=== PATIENT | female | born 1955 | race African-American/Black ===

== ENCOUNTER 2017-12-11 17:47 | Emergency (ER) | payer BC, MEDICARE ==
[~2017-12-11] VITALS: Ht 165.1 cm; Wt 85.0 kg
[~2017-12-11 17:47] MED LIST: IBUP-2028 PO
[2017-12-11] MEDS ORDERED: KETOROLAC 60MG/2ML VIAL IM ONE (21:30)
[2017-12-11 21:48] VITALS: BP 120/72
== END 2017-12-11 23:03 | disposition home or self-care (01) ==
LOC: ER 18:20
DX: R51 Headache (principal); F31.9 Bipolar disorder, unspecified; Z90.710 Acquired absence of both cervix and uterus; V49.3XXA Car occupant (driver) (passenger) injured in unspecified nontraffic accident, initial encounter; Y92.89 Other specified places as the place of occurrence of the external cause; Y99.8 Other external cause status; Y93.89 Activity, other specified
CPT/HCPCS: 96372; 99283; J1885

== ENCOUNTER 2018-08-31 09:27 | Emergency (ER) | payer BC, MEDICARE ==
[~2018-08-31] VITALS: Ht 172.7 cm; Wt 97.5 kg
[2018-08-31] MEDS ORDERED: HYDR-3511 PO (09:58)
[2018-08-31] MEDS ORDERED: IBUP-2029 PO (09:58)
[2018-08-31] MEDS ORDERED: TRANEXAMIC ACID 1,000 MG/10 ML IV ONE (11:00)
[2018-08-31] MEDS ORDERED: TRANEXAMIC ACID 1,000 MG/10 ML TP ONE (11:30)
[2018-08-31] MEDS ORDERED: TETANUS, DIPHTHERIA, PERTUSSIS VAC/PF 0.5ML (>7YR OLD) IM ONE (11:45)
[2018-08-31 12:14] VITALS: BP 124/77
== END 2018-08-31 12:19 | disposition home or self-care (01) ==
LOC: ER 10:31
DX: S61.310A Laceration without foreign body of right index finger with damage to nail, initial encounter (principal); F31.9 Bipolar disorder, unspecified; Z90.710 Acquired absence of both cervix and uterus; Z98.890 Other specified postprocedural states; W26.0XXA Contact with knife, initial encounter; Y93.G3 Activity, cooking and baking; Y92.010 Kitchen of single-family (private) house as the place of occurrence of the external cause
CPT/HCPCS: 90471; 90715; 99283

== ENCOUNTER 2023-01-06 19:52 | Emergency (ER) | payer MEDICARE ==
[~2023-01-06] VITALS: Ht 170.2 cm; Wt 73.0 kg
[~2023-01-06 19:52] MED LIST changes: +HYDR-3512 PO; -IBUP-2028 PO; +IBUP-2029 PO
[2023-01-06 19:55] VITALS: O2SAT 100
[2023-01-06] MEDS ORDERED: ONDANSETRON HCL 4MG/2ML INJ IV STA (20:21)
[2023-01-06] MEDS ORDERED: SODIUM CHLORIDE 0.9% 1,000 ML IV ONE (20:30)
[2023-01-06 21:32] LABS: BASOPHILS % 0.3 % (0.0-2.0); EOSINOPHILS % 0.4 % (0.0-5.0); HEMOGLOBIN. 12.8 g/dL (12.0-16.0); LYMPHOCYTES % 9.5 % (20.0-50.0); MEAN CORPUSCULAR HEMOGLOBIN 28.2 pg (28.0-32.0); MEAN CORPUSCULAR HGB CONC 31.3 g/dL (31.0-37.0); MEAN CORPUSCULAR VOLUME 90.3 fL (81.0-99.0); MEAN PLATELET VOLUME 9.5 fl (7.4-10.4); MONOCYTES % 8.3 % (2.0-8.0); NEUTROPHILS % 81.5 % (40.0-76.0); PLATELET 202 x1000/uL (130-400); RED BLOOD CELL COUNT 4.54 mill/uL (4.2-5.4); RED CELL DISTRIBUTION WIDTH 15.4 % (11.6-14.6); WHITE BLOOD COUNT 14.2 x1000/uL (4.5-11.0)
[2023-01-06 21:49] LABS: CHLORIDE 109 mEq/L (98-107); INDEX HEMOLYSI 3 (1-3); INDEX ICTERIC 1 (1-4); INDEX LIPEMIC 1 (1-3); POTASSIUM 3.5 mEq/L (3.5-5.1); SODIUM 138 mEq/L (136-145)
[2023-01-06 22:02] LABS: ALANINE AMINOTRANSFERASE 26 IU/L (13-61); ALBUMIN 3.8 g/dL (3.4-5.0); ASPARTATE AMINOTRANSFERASE 15 IU/L (15-37); BILIRUBIN TOTAL 0.5 mg/dL (0.1-1.0); CALCIUM 9.1 mg/dL (8.5-10.1); CARBON DIOXIDE 25 mEq/L (21-32); GLUCOSE 119 mg/dL (70-105); PROTEIN TOTAL 7.6 g/dL (6.0-8.3); TROPONIN I HIGH SENSITIVITY 8 ng/L (<54); UREA NITROGEN BLOOD 21 mg/dL (7-21)
[2023-01-06] MEDS ORDERED: ONDA4TAB11 PO (23:18)
[2023-01-07 00:40] VITALS: BP 110/86; PULSE 70; RESP 18; TEMP 98.3
== END 2023-01-07 00:40 | disposition home or self-care (01) ==
LOC: ER 20:57
DX: R11.2 Nausea with vomiting, unspecified (principal); R19.7 Diarrhea, unspecified; F31.9 Bipolar disorder, unspecified; E11.9 Type 2 diabetes mellitus without complications; I10 Essential (primary) hypertension; Z90.710 Acquired absence of both cervix and uterus
CPT/HCPCS: 99284; 96374; 71045; 96361; 80053; 83690; 85025; 84484; 36415; J2405; J7030

== ENCOUNTER 2023-01-14 15:19 | Emergency (ER) | payer MEDICARE ==
[~2023-01-14] VITALS: Ht 172.7 cm; Wt 94.0 kg
[~2023-01-14 15:19] MED LIST changes: +ONDA4TAB11 PO
[2023-01-14 15:26] VITALS: BP 113/62; PULSE 75; RESP 16; TEMP 98.9; O2SAT 97
[2023-01-14 15:58] LABS: BASOPHILS % 0.3 % (0.0-2.0); EOSINOPHILS % 0.4 % (0.0-5.0); HEMATOCRIT. 40.3 % (36.0-48.0); HEMOGLOBIN. 12.9 g/dL (12.0-16.0); MEAN CORPUSCULAR HEMOGLOBIN 28.4 pg (28.0-32.0); MEAN CORPUSCULAR VOLUME 88.7 fL (81.0-99.0); MEAN PLATELET VOLUME 9.1 fl (7.4-10.4); MONOCYTES % 4.3 % (2.0-8.0); PLATELET 185 x1000/uL (130-400); RED BLOOD CELL COUNT 4.54 mill/uL (4.2-5.4); RED CELL DISTRIBUTION WIDTH 15.6 % (11.6-14.6); WHITE BLOOD COUNT 11.6 x1000/uL (4.5-11.0)
[2023-01-14 16:11] LABS: CHLORIDE 110 mEq/L (98-107); INDEX HEMOLYSI 1 (1-3); INDEX ICTERIC 1 (1-4); INDEX LIPEMIC 1 (1-3); POTASSIUM 3.6 mEq/L (3.5-5.1); SODIUM 137 mEq/L (136-145)
[2023-01-14 16:17] LABS: ALANINE AMINOTRANSFERASE 22 IU/L (13-61); ALBUMIN 3.8 g/dL (3.4-5.0); ASPARTATE AMINOTRANSFERASE 10 IU/L (15-37); BILIRUBIN TOTAL 0.3 mg/dL (0.1-1.0); CALCIUM 9.2 mg/dL (8.5-10.1); CARBON DIOXIDE 21 mEq/L (21-32); CREATININE 0.9 mg/dL (0.6-1.3); GLUCOSE 132 mg/dL (70-105); PROTEIN TOTAL 7.6 g/dL (6.0-8.3); UREA NITROGEN BLOOD 17 mg/dL (7-21)
== END 2023-01-14 20:30 | disposition left against medical advice (07) ==
LOC: ER 15:19
DX: R11.0 Nausea (principal); Z53.21 Procedure and treatment not carried out due to patient leaving prior to being seen by health care provider
CPT/HCPCS: 36415; 80053; 82962; 85025; 93005; 99281

== ENCOUNTER 2025-04-16 09:27 | Inpatient (IN) | payer BC ==
[~2025-04-16] VITALS: Ht 172.7 cm; Wt 86.2 kg
[~2025-04-16 09:27] MED LIST changes: +IBUP-1455 PO; -IBUP-2029 PO; +ONDA-239 PO; -ONDA4TAB11 PO
[2025-04-16 09:36] VITALS: O2SAT 100
[2025-04-16] MEDS: SODIUM CHLORIDE 0.9% 500 ML IV ONE (10:03)
[2025-04-16] MEDS ORDERED: LOSA25TA26 MT (10:19)
[2025-04-16] MEDS ORDERED: MELA2.5T16 MT (10:19)
[2025-04-16 10:51] LABS: BASOPHILS % 0.4 % (0.0-2.0); EOSINOPHILS % 0.3 % (0.0-5.0); HEMATOCRIT. 31.6 % (36.0-48.0); HEMOGLOBIN. 9.7 g/dL (12.0-16.0); LYMPHOCYTES % 10.3 % (20.0-50.0); MEAN PLATELET VOLUME 8.4 fl (7.4-10.4); MONOCYTES % 4.5 % (2.0-8.0); NEUTROPHILS % 84.5 % (40.0-76.0); PLATELET 330 x1000/uL (130-400); RED BLOOD CELL COUNT 3.92 mill/uL (4.2-5.4); RED CELL DISTRIBUTION WIDTH 19.9 % (11.6-14.6)
[2025-04-16] MEDS ORDERED: COLC0.6C3 PO (10:56)
[2025-04-16] MEDS ORDERED: LINA145C PO (10:58)
[2025-04-16] MEDS ORDERED: FURO-151 MT (10:58)
[2025-04-16] MEDS ORDERED: HYDR-4009 PO (10:58)
[2025-04-16] MEDS ORDERED: GABA-1180 MT (10:58)
[2025-04-16 11:07] LABS: INR 1.1
[2025-04-16 11:16] LABS: CREATININE 0.8 mg/dL (0.6-1.0)
[2025-04-16 11:17] LABS: TROPONIN I HIGH SENSITIVITY 5 ng/L (3.0-34); UREA NITROGEN BLOOD 22 mg/dL (9-23)
[2025-04-16 11:18] LABS: ASPARTATE AMINOTRANSFERASE 17 IU/L (<34)
[2025-04-16 11:19] LABS: BILIRUBIN DIRECT 0.1 mg/dL (<=3.0); BILIRUBIN TOTAL 0.4 mg/dL (0.1-1.0); PROTEIN TOTAL 6.6 g/dL (6.0-8.3)
[2025-04-16] MEDS ORDERED: DIPHENHYDRAMINE 50MG/ML VIAL IV PRN (13:00)
[2025-04-16] MEDS: GABAPENTIN 300MG CAPSULE PO SCH (13:00)
[2025-04-16] MEDS ORDERED: IPRATROPIUM/ALBUTEROL 0.5-3(2.5)MG/3ML NEB HHN PRN (13:00)
[2025-04-16] MEDS ORDERED: ACETAMINOPHEN 325MG TABLET PO PRN (13:00)
[2025-04-16] MEDS ORDERED: ONDANSETRON HCL 4MG/2ML INJ IV PRN (13:00)
[2025-04-16] MEDS ORDERED: IBUPROFEN 600MG TABLET PO PRN (13:00)
[2025-04-16] MEDS ORDERED: DOCUSATE SODIUM 100MG CAPSULE PO PRN (13:00)
[2025-04-16 13:09] VITALS: BP 115/59; PULSE 76; RESP 20; TEMP 36.696
[2025-04-16] MEDS ORDERED: NALOXONE HCL 0.4MG/ML VIAL IV PRN (13:30)
[2025-04-16] MEDS ORDERED: CEFTRIAXONE 1GM/50ML 50 ML IV SCH (15:00)
[2025-04-16] MEDS ORDERED: LOPERAMIDE HCL 2MG CAPSULE PO PRN (15:00)
[2025-04-16] MEDS: ENOXAPARIN 40MG/0.4ML SYR SUBCUT SCH (15:21)
[2025-04-16] MEDS: POTASSIUM CHLORIDE 20MEQ TABLET SR PO SCH (15:21)
[2025-04-16] MEDS: METRONIDAZOLE 500 MG PREMIX 100 ML IV SCH (15:34)
[2025-04-16] MEDS: LEVOFLOXACIN 750MG PREMIX 150 ML IV NR (16:16)
[2025-04-16 19:47] LABS: CLARITY URINE CLOUDY (CLEAR); COLOR URINE YELLOW (YELLOW); GLUCOSE URINE NEGATIVE (NEGATIVE); KETONES URINE NEGATIVE (NEGATIVE); LEUKOCYTE ESTERASE URINE 2+ (NEGATIVE); NITRITE URINE NEGATIVE (NEGATIVE); OCCULT BLOOD URINE NEGATIVE (NEGATIVE); PH URINE 6.0 (4.5-8.0); PROTEIN URINE TRACE (NEGATIVE); SPECIFIC GRAVITY URINE 1.021 (1.005-1.030); UROBILINOGEN URINE 0.2 E.U./dL (0.2-1.0)
[2025-04-16 20:00] VITALS: BP 109/51; PULSE 76; RESP 18; TEMP 36.7; O2SAT 99
[2025-04-16 20:06] LABS: SQUAMOUS EPITHELIAL CELL URINE 3+ /lpf (RARE/1+)
[2025-04-16 20:07] LABS: BACTERIA URINE 3+; WBC URINE 25-50 /hpf (0-2)
[2025-04-16] MEDS: HYDROCODONE/ACETAMINOPHEN 10/325MG TABLET PO PRN (20:48)
[2025-04-17] VITALS: BP 98/53; PULSE 71; RESP 17; TEMP 36.6; O2SAT 99
[2025-04-17] MEDS: ZOLPIDEM TARTRATE 5MG TABLET PO PRN (00:18)
[2025-04-17 04:00] VITALS: BP 107/57; PULSE 77; RESP 18; TEMP 36.6; O2SAT 98
[2025-04-17 06:31] LABS: BASOPHILS % 0.5 % (0.0-2.0); EOSINOPHILS % 1.8 % (0.0-5.0); HEMATOCRIT. 27.6 % (36.0-48.0); HEMOGLOBIN. 8.8 g/dL (12.0-16.0); LYMPHOCYTES % 39.1 % (20.0-50.0); MEAN PLATELET VOLUME 8.6 fl (7.4-10.4); MONOCYTES % 8.6 % (2.0-8.0); NEUTROPHILS % 50.0 % (40.0-76.0); PLATELET 241 x1000/uL (130-400); RED BLOOD CELL COUNT 3.41 mill/uL (4.2-5.4); RED CELL DISTRIBUTION WIDTH 19.6 % (11.6-14.6)
[2025-04-17 06:36] LABS: CREATININE 0.7 mg/dL (0.6-1.0); UREA NITROGEN BLOOD 13 mg/dL (9-23)
[2025-04-17 08:00] VITALS: BP 105/59; PULSE 71; RESP 17; TEMP 36.6; O2SAT 100
[2025-04-17] MEDS: FUROSEMIDE 40MG TABLET PO SCH (09:13)
[2025-04-17] MEDS: LEVOFLOXACIN 500MG PREMIX 100 ML IV SCH (11:28)
[2025-04-17 12:00] VITALS: BP 104/55; PULSE 75; RESP 18; TEMP 36.9; O2SAT 96
[2025-04-17 16:00] VITALS: BP 113/61; PULSE 72; RESP 18; TEMP 36.7; O2SAT 97
[2025-04-17 20:00] VITALS: BP_SYST 106; BP_SYST 115; BP_DIAS 56; BP_DIAS 61; PULSE 75; RESP 18; TEMP 36.4; O2SAT 98
[2025-04-18] VITALS: BP 112/49; PULSE 74; RESP 18; TEMP 36.7; O2SAT 97
[2025-04-18 03:15] LABS: TROPONIN I HIGH SENSITIVITY 6 ng/L (3.0-34)
[2025-04-18 04:00] VITALS: BP 112/57; PULSE 75; RESP 20; TEMP 36.7; O2SAT 98
[2025-04-18 07:48] LABS: BASOPHILS % 0.3 % (0.0-2.0); EOSINOPHILS % 2.7 % (0.0-5.0); HEMATOCRIT. 27.1 % (36.0-48.0); HEMOGLOBIN. 8.7 g/dL (12.0-16.0); LYMPHOCYTES % 48.6 % (20.0-50.0); MEAN PLATELET VOLUME 8.4 fl (7.4-10.4); MONOCYTES % 7.0 % (2.0-8.0); NEUTROPHILS % 41.4 % (40.0-76.0); PLATELET 241 x1000/uL (130-400); RED BLOOD CELL COUNT 3.36 mill/uL (4.2-5.4); RED CELL DISTRIBUTION WIDTH 20.0 % (11.6-14.6)
[2025-04-18 08:00] VITALS: BP 121/60; PULSE 70; RESP 18; TEMP 37.2; O2SAT 100
[2025-04-18 08:14] LABS: CREATININE 0.8 mg/dL (0.6-1.0); UREA NITROGEN BLOOD 14 mg/dL (9-23)
[2025-04-18] MEDS ORDERED: LEVO-65 MT (12:37)
[2025-04-18] MEDS ORDERED: METR-167 MT (12:37)
[2025-04-18] MEDS ORDERED: POTA-205 MT (12:37)
[2025-04-18] MEDS: POTASSIUM CHLORIDE 20MEQ/PACKET PO SCH (13:19)
[2025-04-18 13:42] VITALS: BP 115/61; PULSE 85; RESP 20; TEMP 98.3
[2025-04-18 16:00] VITALS: BP 104/53; PULSE 73; RESP 18; TEMP 36.9; O2SAT 100
== END 2025-04-18 18:50 | disposition home or self-care (01) | DRG 312 ==
LOC: ER 09:27 → 8WST 11:51
PROVIDERS: ADMIT Internal Medicine; ATTEND Internal Medicine
DX: R55 Syncope and collapse (principal); I47.20 Ventricular tachycardia, unspecified; D64.9 Anemia, unspecified; E11.9 Type 2 diabetes mellitus without complications; F31.9 Bipolar disorder, unspecified; E78.5 Hyperlipidemia, unspecified; N39.0 Urinary tract infection, site not specified; I10 Essential (primary) hypertension; Z85.3 Personal history of malignant neoplasm of breast; Z74.01 Bed confinement status; Z79.899 Other long term (current) drug therapy; Z92.21 Personal history of antineoplastic chemotherapy
CPT/HCPCS: 36415; 71045; 80048; 80076; 81003; 83735; 83880; 84132; 84145; 84484; 85025; 86850; 86900; 93005; 93306; 99285; J0696; J1650; J1956; J3490; J7030